=== PATIENT | male | born 1965 | race Caucasian/White ===

== ENCOUNTER 2019-09-05 11:44 | Emergency (ER) | payer OTHER ==
[2019-09-05] MEDS ORDERED: lisinopriL 10 MG TAB ONE (12:28)
[2019-09-05 12:43] LABS: Absolute Lymphocytes (CBC) 1.4 K/uL (0.7-4.9); Basophils % 0.8 % (0-1.3); Hematocrit 47.7 % (39.6-49.0); Lymphocytes % 16.1 % (15.3-44.8); MPV 7.9 fL (7.6-11.3); RBC Red Blood Cell Count 5.59 M/uL (4.33-5.43)
[2019-09-05 12:53] LABS: BUN Blood Urea Nitrogen 9 mg/dL (7-18); Bicarbonate 32 mmol/L (21-32); Glucose Level 104 mg/dL (74-106); Potassium 3.4 mmol/L (3.5-5.1); Sodium Level 141 mmol/L (136-145); Troponin (Emerg Dept Use Only) < 0.02 ng/mL (0.0-0.045)
[2019-09-05 13:27] LABS: Urine Blood NEGATIVE (NEG); Urine Glucose NEGATIVE (NEG); Urine Protein NEGATIVE (NEG); Urine pH 7.5 (5.0-7.0)
[2019-09-05] MEDS ORDERED: cloNIDine HCL 0.1 MG TAB ONE (14:14)
--- NOTE | 2019-09-05 14:27 | EDPHYS ---
Physician Documentation [facility] Name: Harlan Painter Age: 54 yrs Sex: Male : 1965 Arrival Date: 09/05/2019 Time: 11:45 Bed 13 Private MD: ED Physician Tr Portillo HPI: 09/05 12:10 This 54 yrs old Male presents to ER via EMS with complaints of Blood Pressure la1 Problem. 12:10 Onset: The symptoms/episode began/occurred this morning. Associated signs and symptoms: la1 Pertinent negatives: chest pain, headache, seizure, shortness of breath. Modifying factors: The patient symptoms are alleviated by nothing, the patient symptoms are aggravated by nothing. The patient has been recently seen by a physician: the patient's primary care provider. Pt was seen by [facility] for routine apt and BP was very elevated, EMS called, upon arrival pt BP 231/121, denies CP, SOB, HINES, no focal neurological deficits noted. . Historical: - Allergies: 11:46 No Known Allergies; hb - Home Meds: 11:46 None [Active]; hb - PMHx: 11:46 Hypertension; vc - PSHx: 11:46 None; hb - Immunization history:: Adult Immunizations up to date. - Social history:: Smoking status: Patient/guardian denies using tobacco. - Ebola Screening: : No symptoms or risks identified at this time. ROS: 12:11 Constitutional: Negative for fever, chills, and weight loss, Eyes: Negative for injury, la1 pain, redness, and discharge, ENT: Negative for injury, pain, and discharge, Neck: Negative for injury, pain, and swelling, Cardiovascular: Negative for chest pain, palpitations, and edema, Respiratory: Negative for shortness of breath, cough, wheezing, and pleuritic chest pain, Abdomen/GI: Negative for abdominal pain, nausea, vomiting, diarrhea, and constipation, Back: Negative for injury and pain, MS/Extremity: Negative for injury and deformity, Skin: Negative for injury, rash, and discoloration, Neuro: Negative for headache, weakness, numbness, tingling, and seizure, Endocrine: Negative for neck swelling, polydipsia, polyuria, polyphagia, and marked weight changes. Exam: 12:12 Constitutional: This is a well developed, well nourished patient who is awake, alert, la1 and in no acute distress. Head/Face: Normocephalic, atraumatic. Eyes: Pupils equal round and reactive to light, extra-ocular motions intact. . Periorbital areas with no swelling, redness, or edema. ENT: Mucous membranes moist. Neck: Trachea midline, no thyromegaly or masses palpated, and no cervical lymphadenopathy. Supple, full range of motion without nuchal rigidity, or vertebral point tenderness. No Meningismus. Chest/axilla: Normal chest wall appearance and motion. Nontender with no deformity. No lesions are appreciated. Cardiovascular: Regular rate and rhythm with a normal S1 and S2. No gallops, murmurs, or rubs. Normal PMI, no JVD. No pulse deficits. Respiratory: Lungs have equal breath sounds bilaterally, clear to auscultation No rales, rhonchi or wheezes noted. No increased work of breathing, no retractions or nasal flaring. Abdomen/GI: Soft, non-tender, with normal bowel sounds. No distension or tympany. No guarding or rebound. No evidence of tenderness throughout. 12:12 Neuro: Orientation: is normal, to person, place \T\ time. Mentation: is normal, able to follow commands, Memory: is normal, Cranial nerves: CN I not tested, CN II- XII are normal as tested, Cerebellar function: normal finger to nose testing, heel to swanson testing is normal, Motor: is normal, strength is 5/5 in all extremities, Sensation: is normal, no obvious gross deficits, appropriate light touch sense is normal, Gait: is steady, at a normal pace, without difficulty. Vital Signs: 11:46 BP 231 / 121; Pulse 68; Resp 16; Temp 98.3; Pulse Ox 100% on R/A; Weight 104.33 kg; hb Height 5 ft. 7 in. (170.18 cm); Pain 0/10; 12:00 BP 207 / 116; Pulse 58; Resp 16; Pulse Ox 97% on R/A; Pain 0/10; vc 12:15 BP 211 / 119; Pulse 62; Resp 15; Pulse Ox 96% on R/A; Pain 0/10; vc 12:30 BP 195 / 114; Pulse 65; Resp 14; Pulse Ox 97% on R/A; Pain 0/10; vc 13:00 BP 190 / 114; Pulse 87; Pulse Ox 100% on R/A; vc 14:00 BP 187 / 107; Pulse 49; Resp 14; Pulse Ox 94% on R/A; Pain 0/10; vc 15:00 BP 163 / 90; Pulse 97; Resp 15; Pulse Ox 97% on R/A; Pain 0/10; vc 11:46 Body Mass Index 36.02 (104.33 kg, 170.18 cm) hb MDM: 11:51 Patient medically screened. la1 14:24 Data reviewed: vital signs, nurses notes, lab test result(s), EKG, I have discussed the la1 patient's presentation/case with the attending Emergency Department Physician; and as a result, I will discharge patient. Data interpreted: Pulse oximetry: on room air is 94 %. Interpretation: acceptable. Counseling: I had a detailed discussion with the patient and/or guardian regarding: the historical points, exam findings, and any diagnostic results supporting the discharge/admit diagnosis, the presence of at least one elevated blood pressure reading (>120/80) during this emergency department visit, lab results, the need for outpatient follow up, a family practitioner, to return to the emergency department if symptoms worsen or persist or if there are any questions or concerns that arise at home. Medication response: clonidine partially reduced the patient's blood pressure. Special discussion: Based on the patient's history, exam, and Dx evaluation, there is no indication for emergent intervention or inpatient Tx. It is understood by the patient/guardian that if the Sx's persist or worsen they need to return immediately for re-evaluation. I have referred the patient to see his PCP for further evaluation of high blood pressure. ED course: pt BP down to 182/97, still without any symptoms, will D/C with new RX for lisinopril and FU with PCP, return to ED with onset of chest pain, HINES of any other new or concerning sx. 09/05 12:01 Order name: CBC with Diff; Complete Time: 13:03 09/05 12:01 Order name: BMP; Complete Time: 13:03 09/05 12:01 Order name: Troponin (emerg Dept Use Only); Complete Time: 13:09/05 12:46 Order name: Urine Dipstick--Ancillary (enter results); Complete Time: 13:30 bd 09/05 12:01 Order name: SL; Complete Time: 12:24 la1 09/05 12:01 Order name: EKG Strip; Complete Time: 12:24 la1 09/05 12:01 Order name: Urine Dipstick-Ancillary (obtain specimen); Complete Time: 12:44 la1 Administered Medications: 12:32 Drug: Lisinopril 10 mg Route: PO; vc 13:00 Follow up: Response: No adverse reaction; Blood pressure is lowered vc 14:15 Drug: cloNIDine 0.2 mg Route: PO; vc 15:00 Follow up: Response: No adverse reaction; Blood pressure is lowered vc 15:41 Follow up: Response: Medication administered at discharge. vc Disposition: 09/05/19 14:26 Discharged to Home. Impression: Essential (primary) hypertension. - Condition is Stable. - Discharge Instructions: Hypertension, How to Take Your Blood Pressure, [id number], DASH Eating Plan, Managing Your Hypertension. - Prescriptions for Lisinopril 20 mg Oral Tablet - take 1 tablet by ORAL route once daily; 20 tablet. - Medication Reconciliation Form, Thank You Letter form. - Follow up: Private Physician; When: 2 - 3 days; Reason: Recheck today's complaints, Re-evaluation by your physician. - Problem is new. - Symptoms have improved. Addendum: 09/06/2019 21:11 Co-signature as Attending Physician, Tr Portillo MD I agree with the assessment and k dr plan of care. Signatures: Dispatcher [employer] EDMO Tr Portillo MD MD [facility] Luis A Alvarado, ELECTRICAL LINE WORKER-C ELECTRICAL LINE WORKER-Cla1 Sophia Combs, RN RN hb Corina Pickett RN RN vc Corrections: (The following items were deleted from the chart) 09/05 15:17 14:26 09/05/2019 14:26 Discharged to Home. Impression: Essential (primary) vc hypertension. Condition is Stable. Forms are Medication Reconciliation Form, Thank You Letter, Antibiotic Education, Prescription Opioid Use. Follow up: Private Physician; When: 2 - 3 days; Reason: Recheck today's complaints, Re-evaluation by your physician. Problem is new. Symptoms have improved. la1 15:54 11:46 PMHx: None; hb vc
--- NOTE | 2019-09-05 14:27 | ER ---
Nurse's Notes [facility] Name: Harlan Painter Age: 54 yrs Sex: Male : 1965 Arrival Date: 09/05/2019 Time: 11:45 Bed 13 Private MD: Diagnosis: Essential (primary) hypertension Presentation: 09/05 11:46 Presenting complaint: EMS states: SENT FROM [facility] FOR HTN. Transition of care: bp patient was received from another setting of care (ambulatory primary care physician practice), [facility]. Onset of symptoms is unknown. Risk Assessment: Do you want to hurt yourself or someone else? Patient reports no desire to harm self or others. Initial Sepsis Screen: Does the patient meet any 2 criteria? No. Patient's initial sepsis screen is negative. Does the patient have a suspected source of infection? No. Patient's initial sepsis screen is negative. Care prior to arrival: None. 11:46 Method Of Arrival: EMS: [facility] bp 11:46 Acuity: NGOZI 3 hb Triage Assessment: 11:46 General: Appears in no apparent distress. comfortable, Behavior is calm, cooperative, bp appropriate for age, ASYMPTOMATIC. Pain: Denies pain. EENT: No deficits noted. Neuro: Level of Consciousness is awake, alert, obeys commands, Oriented to person, place, time, situation, Appropriate for age. Cardiovascular: No deficits noted. Rhythm is sinus rhythm. Respiratory: No deficits noted. GI: No signs and/or symptoms were reported involving the gastrointestinal system. : No signs and/or symptoms were reported regarding the genitourinary system. Derm: No deficits noted. Musculoskeletal: No deficits noted. Historical: - Allergies: 11:46 No Known Allergies; hb - Home Meds: 11:46 None [Active]; hb - PMHx: 11:46 Hypertension; vc - PSHx: 11:46 None; hb - Immunization history:: Adult Immunizations up to date. - Social history:: Smoking status: Patient/guardian denies using tobacco. - Ebola Screening: : No symptoms or risks identified at this time. Screenin:46 Abuse screen: Denies threats or abuse. Denies injuries from another. Nutritional hb screening: No deficits noted. Tuberculosis screening: No symptoms or risk factors identified. Fall Risk None identified. Assessment: 11:48 General: SEE TRIAGE NOTE. bp 12:30 Reassessment: Patient is alert, oriented x 3, equal unlabored respirations, skin vc warm/dry/pink. Patient denies pain at this time. 13:30 Reassessment: Patient and/or family updated on plan of care and expected duration. Pain vc level reassessed. Patient given sandwich and a warm blanket. No complaints or needs at this time.. 14:30 Reassessment: Patient is alert, oriented x 3, equal unlabored respirations, skin vc warm/dry/pink. Patient denies pain at this time. Patient states he has no complaints or concerns at this time.. Vital Signs: 11:46 BP 231 / 121; Pulse 68; Resp 16; Temp 98.3; Pulse Ox 100% on R/A; Weight 104.33 kg; hb Height 5 ft. 7 in. (170.18 cm); Pain 0/10; 12:00 BP 207 / 116; Pulse 58; Resp 16; Pulse Ox 97% on R/A; Pain 0/10; vc 12:15 BP 211 / 119; Pulse 62; Resp 15; Pulse Ox 96% on R/A; Pain 0/10; vc 12:30 BP 195 / 114; Pulse 65; Resp 14; Pulse Ox 97% on R/A; Pain 0/10; vc 13:00 BP 190 / 114; Pulse 87; Pulse Ox 100% on R/A; vc 14:00 BP 187 / 107; Pulse 49; Resp 14; Pulse Ox 94% on R/A; Pain 0/10; vc 15:00 BP 163 / 90; Pulse 97; Resp 15; Pulse Ox 97% on R/A; Pain 0/10; vc 11:46 Body Mass Index 36.02 (104.33 kg, 170.18 cm) hb ED Course: 11:45 Patient arrived in ED. bp 11:46 Arm band placed on. hb 11:47 Triage completed. bp 11:48 Patient has correct armband on for positive identification. Bed in low position. Call bp light in reach. Side rails up X2. 11:51 Luis A Alvarado FNP-C [facility]. la1 11:51 Tr Portillo MD is Attending Physician. la1 12:32 Corina Pickett RN is Primary Nurse. vc 12:40 EKG done, by technical sales support manager. reviewed by Luis A AWAD. at1 15:16 No provider procedures requiring assistance completed. IV discontinued, intact, vc bleeding controlled, No redness/swelling at site. Pressure dressing applied. Administered Medications: 12:32 Drug: Lisinopril 10 mg Route: PO; vc 13:00 Follow up: Response: No adverse reaction; Blood pressure is lowered vc 14:15 Drug: cloNIDine 0.2 mg Route: PO; vc 15:00 Follow up: Response: No adverse reaction; Blood pressure is lowered vc 15:41 Follow up: Response: Medication administered at discharge. vc Outcome: 14:26 Discharge ordered by MD. joshi 15:16 Discharged to home vc 15:16 Condition: improved 15:16 Discharge instructions given to patient, Instructed on discharge instructions, follow up and referral plans. Demonstrated understanding of instructions, follow-up care, medications, Prescriptions given X 1. 15:17 Patient left the ED. vc Signatures: Charo [place], battery service technician EKG Tat1 Luis A Alvarado FNP-C FNP-Cla1 Sophia Combs, HEYDI RN hb Michael Campbell, RN RN bp Corina Pickett, RN RN vc Corrections: (The following items were deleted from the chart) 12:18 11:46 Acuity: NGOZI 4 bp hb 15:54 11:46 PMHx: None; hb vc
[2019-09-05 19:56] VITALS: TEMP 98.3
[2019-09-05 20:04] VITALS: BP 187/107; O2SAT 94
--- NOTE | 2019-09-06 12:45 | EKG ---
Test Date: 2019-09-05 Test Time: 12:22:57 Neck Cutter: KARINA MEASUREMENT RESULTS: Intervals: Rate: 57 [place]: 188 QRSD: 154 QT: 502 QTc: 488 [place]: P: 14 [place]: 188 QRS: -27 T: -36 INTERPRETIVE STATEMENTS: Sinus bradycardia Right bundle branch block Minimal voltage criteria for LVH, may be normal variant Abnormal ECG No previous ECG available for comparison Electronically Signed On 09-06-19 12:42:33 [employer]E RUNNER by Kevin Metcalf
== END 2019-09-05 15:17 | disposition home or self-care (01) ==
LOC: ER 11:44
DX: I10 Essential (primary) hypertension (principal)
CPT/HCPCS: 36415; 80048; 81003; 84484; 85025; 93005; 99284